=== PATIENT | male | born 2000 | race Caucasian/White ===

== ENCOUNTER 2019-08-28 14:26 | Outpatient (CLI) | payer OTHER ==
[2014-12-27 10:47] VITALS: BP 129/82
--- NOTE | 2019-09-02 10:20 | OP Clinic Progress Note ---
DATE OF VISIT: 08/28/2019 SUBJECTIVE: The patient is a 19-year-old male presented to the clinic today for a painful right great toenail. The patient states that it has been painful for quite awhile now. He is unsure if he dropped something on it or what but he has had a loose toenail for several months at least, which he has tried to cut back but continues to grow out and catch on things. He would like to have the toenail removed permanently because of the pain it is causing. He also admits to recent bleeding yesterday from underneath the nail. The patient admits that the toenail has been discolored for quite some time as well. The patient does not admit to any health issues and states that HE HAS AN AUGMENTIN ALLERGY THAT IS PRESENT. The patient does not admit to any fever, chills, nausea, vomiting, shortness of breath or chest pain or any other type allergies besides Augmentin. He denies any routine medications as well. OBJECTIVE: Vitals: Temperature 99.4 degrees Fahrenheit, heart rate 89, respiration rate 18, blood pressure 149/99. O2 saturation is 95% on room air. Vascular: 2+ DP and PT pulses, right foot. Capillary refill time is less than 3 seconds to the toes of the right foot. There is no edema noted, right foot. Dermatologic: The right great toenail is quite loose with attachment only in the proximal one-third of the nail plate. The toenail is also dark and discolored and thick. The patient does not have any erythema or swelling or drainage or purulence of any kind or warmth noted suggesting infection. Musculoskeletal: There is some pain to palpation on the nail itself. There is no other pain on palpation noted. No gross abnormalities noted. Neurologic: Light touch sensation is intact to the toes, right foot. ASSESSMENT AND PLAN: 1. Onycholysis of the right hallux, painful. PROCEDURE #1: Total nail avulsion, right hallux with chemical matrixectomy was performed. Risks and benefits of the procedure were discussed that include but are not limited to bleeding, infection, nonhealing, etc., and the patient has agreed with both a written and verbal consent to go forward with the procedure described above at this time. The consent was signed and placed in the chart. A discussion was had with the patient of doing a total nail avulsion temporary procedure and seeing if the nail grows back in more appropriately, but I doubt it will tack down well to a nail bed as it already has dried up under most of the nail. The decision was made by the patient to go forward as mentioned above with a total nail removal with chemical matrixectomy. PROCEDURE IN DETAIL: An alcohol swab was utilized to cleanse the base of the right great toe and an injection consisting of 4 cc of a 1:1 mix of 2% lidocaine plain and 0.5% Marcaine plain were injected into the base of the right great toe. After a couple of minutes, the toe still had sensation in the distal aspect so 2 cc more of the same mixture were injected and anesthesia was obtained. The patient then had the toe exsanguinated and toe tourniquet was applied. At this time, a Betadine prep was utilized to cleanse the right great toe. At this time, utilizing a spatula, the nail was loosened from its dorsal and plantar attachments. It should be noted that most of the nail was detached from the distal two-thirds of the nail plate. The nail was then removed with a pair of hemostats in its entirety. It was checked to make sure that the entire nail was removed and it was. The site was rinsed with copious amount of normal saline. Any extra tissue or dirty tissue was removed. Phenol was then applied in applications of 45 seconds, 30 seconds and 30 seconds after first applying triple antibiotic ointment around the edges of the procedure site to protect the skin. At this time the tourniquet was then released and prompt hyperemic response was noted to the right great toe. At this time, 70% isopropyl alcohol was utilized to clean out and dilute out the phenol. At this time, a copious amount of normal saline was utilized to cleanse the right great toe. The toe was then dried and pressure applied until hemostasis was obtained pretty well. At this time, dressings were applied consisting of Silvadene, 4 x 4 gauze, 2-inch Lisa and 1-inch Coban beginning on the great toe and ending on the distal right forefoot. The patient tolerated the procedure very well. He was given detailed written and verbal instructions regarding taking care of this going forward. The patient will see me for a return to clinic visit in one week and knows what to things to look for, for any signs of infection and to get into the ER or urgent care or to me as soon as possible if he notices anything. The patient had no further questions or concerns and was happy with his visit. We will see the patient in one week. Laila AlfaroP.M. (Dictated/not signed) /[employer] [id number] /mab MTDD
== END 2019-08-28 14:50 ==
LOC: POD 14:26
PROVIDERS: ATTEND Podiatrist Foot & Ankle Surgery
DX: L60.1 Onycholysis (principal)
CPT/HCPCS: A4554; J2001; J3490

== ENCOUNTER 2019-09-04 14:44 | Outpatient (CLI) | payer OTHER ==
[2014-12-27 10:47] VITALS: BP 129/82
--- NOTE | 2019-09-10 10:26 | OP Clinic Progress Note ---
DATE OF VISIT: 09/04/2019 SUBJECTIVE: Brian is a 19-year-old male presenting to clinic today for follow up of a right hallux total nail avulsion with chemical matrixectomy performed on 08/28/2019 for onycholysis that was causing a problem for the patient. The patient agreed and wanted to have the nail avulsed entirely and permanently despite my suggestion of leaving it and just doing a temporary procedure. The patient preferred to have it done permanently as I suggested that this likely will continue to grow back in the same as before and with very minimal attachment in the nail bed. The patient is doing well over this last week and admits only mild pain and discomfort. He is using gauze and antibiotic ointment and tape to hold it on the toe rather than Band-Aids as he prefers not to use Band-Aids. He does not admit to any fevers, chills, nausea, vomiting, shortness of breath or chest pain. HE DOES HAVE AN ALLERGY TO AUGMENTIN, WHICH IS ALWAYS OF NOTE. OBJECTIVE: Vitals: Temperature 97.9 degrees Fahrenheit, heart rate 99, respiration rate 16, blood pressure 146/85. O2 saturation is 95% on room air. Vascular: 2+ DP and PT pulses, right foot. Capillary refill time is less than 3 seconds to the toes right foot. There is no edema noted, right foot. Dermatologic: There is slight serous drainage on the proximal, medial and lateral aspects of the nail bed where the procedure was performed. This was debrided with a #15 blade today and rinsed with a copious amount of normal saline. There is no erythema or purulence or malodor noted or any other signs of infection. Musculoskeletal: There is mild pain with debridement today and there is no other pain on palpation noted, otherwise. Neurologic: Light touch sensation is intact to the toes, right foot. ASSESSMENT AND PLAN: 1. Status post right hallux toenail avulsion with chemical matrixectomy on 08/28/2019 - routine healing. 2. A slight debridement of the wound base was performed today, which is not being charged for. The patient is to continue antibiotic and gauze for one more week and then just gauze for one week as he does not like Band-Aids. He will return to clinic in two weeks for follow up and is to see me sooner for any concerns or issues. He does not admit to any other issues and will see us in two weeks. Chavez Courtney D.P.M. /[employer]ut[employer] [id number] /mab MTDD
== END 2019-09-04 15:14 ==
LOC: POD 14:44
PROVIDERS: ATTEND Podiatrist Foot & Ankle Surgery
DX: Z48.817 Encounter for surgical aftercare following surgery on the skin and subcutaneous tissue (principal)
CPT/HCPCS: 11042; 99212; A4554